=== PATIENT | female | born 2005 | race Two or more races ===

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

== ENCOUNTER → 2023-05-14 | Outpatient (CLI) | payer OTHER ==
[2023-05-14 13:28] LABS: ALT 23 U/L (8-44); AST 16 U/L (13-35); Albumin 4.5 d/dL (3.8-4.9); Albumin/Globulin Ratio 1.96 Ratio (1.60-3.17); Alkaline Phosphatase 81 U/L (41-126); Blood Urea Nitrogen 9.4 mg/dL (9.0-27.0); C-Peptide 3.23 ng/mL (0.81-3.85); Calcium 9.7 mg/dL (8.7-10.3); Carbon Dioxide 22.8 mmol/L (21.6-31.8); Chloride 104 mmol/L (96-109); Chol/HDL Ratio 5.68 Ratio; Globulin 2.3 d/dL (1.6-3.3); Glucose 235 mg/dL (70-110); Sodium 139 mmol/L (135-145); Total Bilirubin 0.4 mg/dL (0.3-1.2); Total Protein 6.8 d/dL (6.2-8.2)
== END | disposition home or self-care (01) ==
LOC: LABWHC1 08:54
PROVIDERS: ATTEND Internal Medicine Endocrinology, Diabetes & Metabolism
DX: E11.65 Type 2 diabetes mellitus with hyperglycemia (principal)
CPT/HCPCS: 36415; 80053; 80061; 82043; 82570; 83519; 84681; 86341

== ENCOUNTER 2024-12-25 16:58 | Emergency (ER) | payer OTHER ==
[2024-12-25 17:10] VITALS: TEMP 98.2
--- NOTE | 2024-12-25 17:56 | ED ---
Eye Problem HPI - General Chief complaint: ENT Stated complaint: Vision issue,headache Time Seen by Provider: 12/25/24 17:22 Source: patient, RN notes reviewed, old records reviewed Mode of arrival: ambulatory Limitations: no limitations - History of Present Illness Initial comments: This is a 19-year-old female to the ER for evaluation patient presents today for evaluation of limited vision in the right eye. Patient having difficulty staying lower aspect of her right eye. Only in the right eye. History of right eye visual floaters. Maybe some eye pain may be a mild headache but nothing significant here in the ER. 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 MD chief complaint: eye pain, vision change -: hour(s) Onset Description: gradual Location: right eye Place: home If Injury: none Severity: moderate Severity scale (1-10): 5 Consistency: constant Associated Symptoms: none Treatments Prior to Arrival: none - Related Data Home Medications Medication Instructions Recorded Confirmed Dextroamphetamine/Amphetamine 30 mg PO DAILY 10/04/18 03/05/21 [Adderall Xr] buPROPion HCL [Wellbutrin XL] 300 mg PO DAILY 10/04/18 03/05/21 hydrOXYzine pamoate [Vistaril] 25 mg PO BID PRN 01/27/20 03/05/21 INSULIN LISPRO (For Pump) [humaLOG 0.01 units SQ-PUMP CONTINUOUS 03/05/21 03/05/21 (For Pump)] Insulin Glargine (Lantus) [Lantus] 60 unit SQ DIRECTED 03/05/21 03/05/21 [place] Carbonate [[place] 900 mg PO HS 03/05/21 03/05/21 Carbonate ER] Prazosin HCl 4 mg PO HS 03/05/21 03/05/21 QUEtiapine [SEROquel] 150 mg PO HS 03/05/21 03/05/21 norgestimate-ethinyl estradioL 1 tab PO DAILY 03/05/21 03/05/21 [Sprintec 28 Day Tablet] Allergies Allergy/AdvReac Type Severity Reaction Status Date / Time No Known Allergies Allergy Verified 12/25/24 17:07 Review of Systems ROS Statement: Those systems with pertinent positive or pertinent negative responses have been documented in the HPI. ROS Other: All systems not noted in ROS Statement are negative. Past Medical History Past Medical History: Asthma, Diabetes Mellitus History of Any Multi-Drug Resistant Organisms: None Reported Past Surgical History: Tonsillectomy Past Psychological History: Depression Smoking Status: Vaper Past Alcohol Use History: None Reported Past Drug Use History: None Reported General Exam Limitations: no limitations General appearance: alert, in no apparent distress Head exam: Present: atraumatic, normocephalic, normal inspection Eye exam: Present: normal appearance, PERRL, EOMI. Absent: scleral icterus, conjunctival injection, periorbital swelling ENT exam: Present: normal exam, mucous membranes moist Neck exam: Present: normal inspection. Absent: tenderness, meningismus, lymphadenopathy Respiratory exam: Present: normal lung sounds bilaterally. Absent: respiratory distress, wheezes, rales, rhonchi, stridor Cardiovascular Exam: Present: regular rate, normal rhythm, normal heart sounds. Absent: systolic murmur, diastolic murmur, rubs, gallop, clicks GI/Abdominal exam: Present: soft, normal bowel sounds. Absent: distended, tenderness, guarding, rebound, rigid Extremities exam: Present: normal inspection, full ROM, normal capillary refill. Absent: tenderness, pedal edema, joint swelling, calf tenderness Back exam: Present: normal inspection Neurological exam: Present: alert, oriented X3, CN II-XII intact Psychiatric exam: Present: normal affect, normal mood Skin exam: Present: warm, dry, intact, normal color. Absent: rash Course Vital Signs 12/25/24 17:09 Temperature 98.2 F Pulse Rate 94 Respiratory 20 Rate Blood Pressure 126/89 O2 Sat by Pulse 98 Oximetry - Reevaluation(s) Reevaluation #1: 12/25/24 20:04 Medical records reviewed Reevaluation #2: 12/25/24 20:04 No improvement in vision here in the ER Reevaluation #4: Was pt. sent in by a medical professional or institution (, PA, LOCOMOTIVE LUBRICATING SYSTEMS CLERK, urgent care, hospital, or [facility]...) When possible be specific @ -no Did you speak to anyone other than the patient for history (EMS, parent, family, police, friend...)? What history was obtained from this source @ -no Did you review nursing and triage notes (agree or disagree)? Why? @ -agree Are old charts reviewed (outside hosp., previous admission, EMS record, old EKG, old radiological studies, urgent care reports/EKG's, [facility] records)? Report findings @ -yes Differential Diagnosis (chest pain, altered mental status, abdominal pain women, abdominal pain men, vaginal bleeding, weakness, fever, dyspnea, syncope, headache, dizziness, GI bleed, back pain, seizure, CVA, palpatations, mental health, musculoskeletal)? @ -prior EKG interpreted by me (3pts min.). @ -yes X-rays interpreted by me (1pt min.). @ -yes negative for acute disease CT interpreted by me (1pt min.). @ -no U/S interpreted by me (1pt. min.). @ -no What testing was considered but not performed or refused? (CT, X-rays, U/S, labs)? Why? @ -none What meds were considered but not given or refused? Why? @ -none Did you discuss the management of the patient with other professionals (professionals i.e. , PA, LOCOMOTIVE LUBRICATING SYSTEMS CLERK, lab, RT, psych nurse, social and human services assistant, mission analyst, teacher, production officer, case management rn)? Give summary @ -no Was smoking cessation discussed for >3mins.? @ -no Was critical care preformed (if so, how long)? @ -no Were there social determinants of health that impacted care today? How? (Homelessness, low income, unemployed, alcoholism, drug addiction, transportation, low edu. Level, literacy, decrease access to med. care, alf, rehab)? @ -none Was there de-escalation of care discussed even if they declined (Discuss DNR or withdrawal of care, Hospice)? DNR status @ -no What co-morbidities impacted this encounter? (DM, HTN, Smoking, COPD, CAD, Cancer, CVA, ARF, Chemo, Hep., AIDS, mental health diagnosis, sleep apnea, morbid obesity)? @ -none Was patient admitted / discharged? Hospital course, mention meds given and route, prescriptions, significant lab abnormalities, going to OR and other pertinent info. @ - Undiagnosed new problem with uncertain prognosis? @ -no Drug Therapy requiring intensive monitoring for toxicity (Heparin, Nitro, Insulin, Cardizem)? @ -no Were any procedures done? @ -no Diagnosis/symptom? @ - Acute, or Chronic, or Acute on Chronic? @ -Acute Uncomplicated (without systemic symptoms) or Complicated (systemic symptoms)? @ -Complicated Side effects of treatment? @ -no Exacerbation, Progression, or Severe Exacerbation? @ -exacerbation Poses a threat to life or bodily function? How? (Chest pain, [place], [place], pneumonia, PE, COPD, DKA, ARF, appy, cholecystitis, CVA, Diverticulitis, Homicidal, Suicidal, threat to staff... and all critical care pts) @ -yes - Consultations Consultation #1: With ophthalmology who is able to come to the hospital to see this patient Disposition Clinical Impression: Vitreous hemorrhage Disposition: HOME SELF-CARE Condition: Good Instructions (If sedation given, give patient instructions): Visual Floaters (ED) Is patient prescribed a controlled substance at d/c from ED?: No Referrals: None,Stated [Primary Care Provider] - 1-2 days Time of Disposition: 20:20
[2024-12-25 21:14] VITALS: BP 135/91; PULSE 96; RESP 18
--- NOTE | 2024-12-28 13:27 | P.GSCN ---
History of Present Illness Consult date: 12/28/24 Reason for Consult: decreased vision OD Requesting physician: Tim Vicente History of present illness: started decreased vision tuesday that has progressed Review of Systems see chart Past Medical History Past Medical History: Asthma, Diabetes Mellitus History of Any Multi-Drug Resistant Organisms: None Reported Past Surgical History: Tonsillectomy Past Psychological History: Depression Smoking Status: Vaper Past Alcohol Use History: None Reported Past Drug Use History: None Reported Medications and Allergies Home Medications Medication Instructions Recorded Confirmed Type Dextroamphetamine/Amphetamine 30 mg PO DAILY 10/04/18 03/05/21 History [Adderall Xr] buPROPion HCL [Wellbutrin XL] 300 mg PO DAILY 10/04/18 03/05/21 History hydrOXYzine pamoate [Vistaril] 25 mg PO BID PRN 01/27/20 03/05/21 History INSULIN LISPRO (For Pump) [humaLOG 0.01 units SQ-PUMP CONTINUOUS 03/05/21 03/05/21 History (For Pump)] Insulin Glargine (Lantus) [Lantus] 60 unit SQ DIRECTED 03/05/21 03/05/21 History [place] Carbonate [[place] 900 mg PO HS 03/05/21 03/05/21 History Carbonate ER] Prazosin HCl 4 mg PO HS 03/05/21 03/05/21 History QUEtiapine [SEROquel] 150 mg PO HS 03/05/21 03/05/21 History norgestimate-ethinyl estradioL 1 tab PO DAILY 03/05/21 03/05/21 History [Sprintec 28 Day Tablet] Allergies Allergy/AdvReac Type Severity Reaction Status Date / Time No Known Allergies Allergy Verified 12/25/24 17:07 Surgical - Exam Osteopathic Statement: *. No significant issues noted on an osteopathic structural exam other than those noted in the History and Physical/Consult. Vital Signs Temp Pulse Resp BP Pulse Ox 98.2 F 94 20 126/89 98 12/25/24 17:09 12/25/24 17:09 12/25/24 17:09 12/25/24 17:09 12/25/24 17:09 - Eyes visual acuities OD 20/400 VA OS 20/20 IOP soft to palpation EOM: Full ou CVF: diminished OD full OS SLE: Lids: clear OU Conj: clear OU K; clear OU AC: deep and quiet OU Iris: flat no rubeosis OU Lens: clear ou Fundus: dilated with tropicamide and phenylephrine OD CD: 0.3 OD Vessels: Microaneurysm's OD Macula: dot hemorrhage OD Periphery: Dot hemorrhage OD Media: Vitreous hemorrhage OD Assessment and Plan Plan: 1. Severe diabetic retinopathy OD 2. Vitreous hemorrhage OD 3. Stay upright to help. the hemorrhage settle. better blood sugar control stressed. patient to call office for follow up visit on tuesday for fundus photo and further evaluation.
== END 2024-12-25 21:14 | disposition home or self-care (01) ==
LOC: EC 16:58
DX: H43.11 Vitreous hemorrhage, right eye (principal); F17.290 Nicotine dependence, other tobacco product, uncomplicated
CPT/HCPCS: 99284

== ENCOUNTER 2025-01-11 11:35 | Emergency (ER) | payer OTHER ==
[2025-01-11 11:51] VITALS: TEMP 97.5
--- NOTE | 2025-01-11 13:03 | ED ---
General Adult HPI - General Chief complaint: Recheck/Abnormal Lab/Rx Stated complaint: dizziness, NV Time Seen by Provider: 01/11/25 12:09 Source: patient Mode of arrival: ambulatory Limitations: no limitations - History of Present Illness Initial comments: Dictation was produced using [employer] dictation software. please excuse any grammatical, word or spelling errors. Chief Complaint: 19-year-old female presents to the emergency department for post LP headache History of Present Illness: 19-year-old female she was recently seen in the emergency department on the first she was seen by ophthalmology and told that she had a vitreous hemorrhage. Patient ended up at [facility] was admitted for a week where she had a lumbar puncture, and 2 MRIs. Patient states she was discharged after her LP results were normal and MRIs were normal. Belen ent states she has had approximately 2 to 3 weeks of right-sided vision loss. States that her symptoms are similar since they began. States that 2 days after the lumbar puncture she began having pressure in her head mostly in the occiput. Patient states that the headache has been relatively stable since its onset. The ROS documented in this emergency department record has been reviewed and co nfirmed by me. Those systems with pertinent positive or negative responses have been documented in the HPI. All other systems are other negative and/or noncontributory. - Related Data Home Medications Medication Instructions Recorded Confirmed Dextroamphetamine/Amphetamine 30 mg PO DAILY 10/04/18 03/05/21 [Adderall Xr] buPROPion HCL [Wellbutrin XL] 300 mg PO DAILY 10/04/18 03/05/21 hydrOXYzine pamoate [Vistaril] 25 mg PO BID PRN 01/27/20 03/05/21 INSULIN LISPRO (For Pump) [humaLOG 0.01 units SQ-PUMP CONTINUOUS 03/05/21 03/05/21 (For Pump)] Insulin Glargine (Lantus) [Lantus] 60 unit SQ DIRECTED 03/05/21 03/05/21 [place] Carbonate [[place] 900 mg PO HS 03/05/21 03/05/21 Carbonate ER] Prazosin HCl 4 mg PO HS 03/05/21 03/05/21 QUEtiapine [SEROquel] 150 mg PO HS 03/05/21 03/05/21 norgestimate-ethinyl estradioL 1 tab PO DAILY 03/05/21 03/05/21 [Sprintec 28 Day Tablet] Previous Rx's Medication Instructions Recorded Cephalexin [Keflex] 500 mg PO Q12HR 7 Days #14 cap 01/11/25 Allergies Allergy/AdvReac Type Severity Reaction Status Date / Time No Known Allergies Allergy Verified 01/11/25 11:51 Review of Systems ROS Statement: Those systems with pertinent positive or pertinent negative responses have been documented in the HPI. ROS Other: All systems not noted in ROS Statement are negative. Past Medical History Past Medical History: Asthma, Diabetes Mellitus History of Any Multi-Drug Resistant Organisms: None Reported Past Surgical History: Tonsillectomy Past Psychological History: Depression Smoking Status: Vaper Past Alcohol Use History: None Reported Past Drug Use History: None Reported General Exam - General Exam Comments Initial Comments: PHYSICAL EXAM: General Impression: Alert and oriented x3, not in acute distress HEENT: Normocephalic atraumatic, extra-ocular movements intact, pupils equal and reactive to light bilaterally, mucous membranes moist. Cardiovascular: Heart regular rate and rhythm Chest: Able to complete full sentences, no retractions, no tachypnea Abdomen: abdomen soft, non-tender, non-distended, no organomegaly Musculoskeletal: Pulses present and equal in all extremities, no peripheral edema Motor: no focal deficits noted Neurological: CN II-XII grossly intact, no focal motor or sensory deficits noted Skin: Intact with no visualized rashes Psych: Normal affect and mood Limitations: no limitations Course Vital Signs 01/11/25 11:48 Temperature 97.5 F L Pulse Rate 98 Respiratory 20 Rate Blood Pressure 123/87 O2 Sat by Pulse 99 Oximetry Medical Decision Making - Medical Decision Making Was pt. sent in by a medical professional or institution (, PA, [employer], urgent care, hospital, or care home...) When possible be specific @ -No Did you speak to anyone other than the patient for history (EMS, parent, family, police, friend...)? What history was obtained from this source @ -No Did you review nursing and triage notes (agree or disagree)? Why? @ -I reviewed and agree with nursing and triage notes Were old charts reviewed (outside hosp., previous admission, EMS record, old EKG, old radiological studies, urgent care reports/EKG's, care home records)? Report findings @ -No old charts were reviewed Differential Diagnosis (chest pain, altered mental status, abdominal pain women, abdominal pain men, vaginal bleeding, musculoskeletal, weakness, fever, dyspnea, syncope, headache, dizziness, GI bleed, back pain, seizure, CVA, palpatations, mental health)? @ -Differential Vaginal Bleeding: Spontaneous , threatened , molar , ectopic , bloody show, incompetent cervix, abruptioplacenta, placenta previa, uterine rupture, dysfunctional uterine bleeding, hemorrhage, uterine fibroids, this is not meant to be an all-inclusive list. EKG interpreted by me (3pts min.). @ -None done X-rays interpreted by me (1pt min.). @ -None done CT interpreted by me (1pt min.). @ -None done U/S interpreted by me (1pt. min.). @ -@Shows no intrauterine What testing was considered but not performed or refused? (CT, X-rays, U/S, labs)? Why? @ -None What meds were considered but not given or refused? Why? @ -None Was smoking cessation discussed for >3mins.? @ -No Were there social determinants of health that impacted care today? How? (Homelessness, low income, unemployed, alcoholism, drug addiction, transportation, low edu. Level, literacy, decrease access to med. care, half-way, rehab)? @ -No Was there de-escalation of care discussed even if they declined (Discuss DNR or withdrawal of care, Hospice)? DNR status @ -No What co-morbidities impacted this encounter? (DM, HTN, Smoking, COPD, CAD, Cancer, CVA, ARF, Chemo, Hep., AIDS, mental health diagnosis, sleep apnea, morbid obesity)? @ -None Was patient admitted / discharged? Hospital course, mention meds given and route, prescriptions, significant lab abnormalities, going to OR and other pertinent info. @ -19-year-old female presents to the ER for pelvic pain and vaginal bleeding in . Patient is a positive blood type. Patient well-appearing vital signs are stable. Patient is concerned of miscarriage refusing pelvic exam. Labs obtained beta quant is 46.4. Urinalysis shows blood and white blood cells. Ultrasound shows no intrauterine likely miscarriage. Patient given ectopic precautions. Patient given referral to on-call OB. Did you discuss the management of the patient with other professionals (professionals i.e. , PA, [employer], lab, RT, psych nurse, school social worker, supervising deputy, teacher, hospital security officer, director of casework)? Give summary @ -No Was critical care preformed (if so, how long)? @ -No Undiagnosed new problem with uncertain prognosis? @ -No Drug Therapy requiring intensive monitoring for toxicity (Heparin, Nitro, Insulin, Cardizem)? @ -No Were any procedures done? @ -No Diagnosis/symptom? Acute, or Chronic, or Acute on Chronic? Uncomplicated (without systemic symptoms) or Complicated (systemic symptoms)? @ -Vaginal bleeding in Side effects of treatment? @ -No Exacerbation, Progression, or Severe Exacerbation? @ -No Poses a threat to life or bodily function? How? (Chest pain, [place], [place], pneumonia, PE, COPD, DKA, ARF, appy, cholecystitis, CVA, Diverticulitis, Homicidal, Suicidal, threat to staff... and all critical care pts) @ -yes - Lab Data Result diagrams: 01/11/25 13:24 01/11/25 13:24 Lab Results 01/11/25 01/11/25 Range/Units 13:24 13:24 WBC 14.05 H (4.50-10.00) 10*3/uL RBC 5.53 H (4.10-5.20) 10*6/uL Hgb 13.7 (12.0-15.0) g/dL Hct 41.7 (37.2-46.3) % MCV 75.4 L (80.0-97.0) fL MCH 24.8 L (27.0-32.0) pg MCHC 32.9 (32.0-37.0) g/dL Plt Count 315 (140-440) 10*3/uL MPV 10.4 (9.5-12.2) fL Immature Gran % (Auto) 0.4 % Neutrophils % 77.4 % Lymphocytes % 17.7 % Monocytes % 3.7 % Eosinophils % 0.7 % Basophils % 0.1 % Immature Gran # 0.06 H (0.00-0.04) 10*3/uL Neutrophils # 10.86 H (1.80-7.70) 10*3/uL Lymphocytes # 2.49 (0.90-5.00) 10*3/uL Monocytes # 0.52 (0.20-1.00) 10*3/uL Eosinophils # 0.10 (0.04-0.35) 10*3/uL Basophils # 0.02 (0.00-0.10) 10*3/uL Sodium 131 L (137-145) mmol/L Potassium 4.4 (3.5-5.1) mmol/L Chloride 100 (98-107) mmol/L Carbon Dioxide 22 (22-30) mmol/L Anion Gap 9 mmol/L BUN 12 (7-17) mg/dL Creatinine 0.32 L (0.52-1.04) mg/dL Est GFR (CKD-EPI)AfAm >90 (>60 ml/min/1.73 sqM) Est GFR (CKD-EPI)NonAf >90 (>60 ml/min/1.73 sqM) Glucose 289 H (74-99) mg/dL Calcium 9.4 (8.4-10.2) mg/dL Disposition Clinical Impression: Vaginal bleeding during Disposition: HOME SELF-CARE Condition: Fair Instructions (If sedation given, give patient instructions): Threatened Miscarriage (ED) Additional Instructions: f/u with Dr. Farah after blood test. return to ER for worsening symptoms Prescriptions: Cephalexin [Keflex] 500 mg PO Q12HR 7 Days #14 cap Is patient prescribed a controlled substance at d/c from ED?: No Referrals: Joanna Bhakta MD [STAFF PHYSICIAN] - 1-2 days Time of Disposition: 14:12
--- NOTE | 2025-01-11 13:18 | CT ---
EXAMINATION TYPE: CT brain wo con DATE OF EXAM: 01/11/2025 COMPARISON: 04/29/2014 CLINICAL INDICATION: Female, 19 years old with history of spinal tap headache; [facility], 1011.4 CT DLP: Headache and dizziness, lumbar puncture done x 4 days ago. mGycm Automated exposure control for dose reduction was used. Findings: The ventricles, basal cisterns and sulci over the convexities are within normal limits and there is n o mass effect or shift of midline structures. No abnormal density is seen throughout the brain parenchyma and there is no acute intra or extra-axia l hemorrhage. The posterior fossa including the brainstem, fourth ventricle and cerebellar pontine angles appear no rmal. Intraorbital contents appear normal and symmetric. Visualized paranasal sinuses and mastoid air cells are well aerated. The calvarium is intact. IMPRESSION: No significant abnormality seen. There is no acute bleed or mass effect. [facility], , 01/11/2025 1:16 PM
[2025-01-11 13:29] LABS: Basophils # (A) 0.02 10*3/uL (0.00-0.10); Basophils % (A) 0.1 %; Eosinophils % (A) 0.7 %; HCT 41.7 % (37.2-46.3); HGB 13.7 g/dL (12.0-15.0); Lymphocytes # (A) 2.49 10*3/uL (0.90-5.00); Lymphocytes % (A) 17.7 %; MCH 24.8 pg (27.0-32.0); MCHC 32.9 g/dL (32.0-37.0); MCV 75.4 fL (80.0-97.0); Mean Platelet Volume 10.4 fL (9.5-12.2); Monocytes # (A) 0.52 10*3/uL (0.20-1.00); Monocytes % (A) 3.7 %; Neutrophils # (A) 10.86 10*3/uL (1.80-7.70); Neutrophils % (A) 77.4 %; Platelet Count 315 10*3/uL (140-440); RBC 5.53 10*6/uL (4.10-5.20); RDW 14.1 % (11.5-14.5); WBC 14.05 10*3/uL (4.50-10.00)
[2025-01-11] MEDS: SODIUM CHLORIDE 0.9% 1,000 ML IV STA (13:35)
[2025-01-11 13:39] LABS: African American GFR (CKD) >90 (>60 ml/min/1.73 sqM); Anion Gap 9 mmol/L; Blood Urea Nitrogen 12 mg/dL (7-17); Calcium 9.4 mg/dL (8.4-10.2); Carbon Dioxide 22 mmol/L (22-30); Chloride 100 mmol/L (98-107); Glucose 289 mg/dL (74-99); Non-African American GFR(CKD) >90 (>60 ml/min/1.73 sqM); Potassium 4.4 mmol/L (3.5-5.1); Sodium 131 mmol/L (137-145)
[2025-01-11] MEDS: CAFFEINE-SODIUM BENZOATE 500 MG in SODIUM CHLORIDE 0.9% 1,000 ML IVPB ONE (13:45)
--- NOTE | 2025-01-11 14:24 | ED ---
General Adult HPI - General Chief complaint: Recheck/Abnormal Lab/Rx Stated complaint: dizziness, NV Time Seen by Provider: 01/11/25 12:09 Source: patient Mode of arrival: ambulatory Limitations: no limitations - History of Present Illness Initial comments: Dictation was produced using [employer] dictation software. please excuse any grammatical, word or spelling errors. Chief Complaint: 19-year-old female presents to the emergency department for post LP headache History of Present Illness: 19-year-old female she was recently seen in the emergency department on the first she was seen by ophthalmology and told that she had a vitreous hemorrhage. Patient ended up at [facility] was admitted for a week where she had a lumbar puncture, and 2 MRIs. Patient states she was discharged after her LP results were normal and MRIs were normal. Belen ent states she has had approximately 2 to 3 weeks of right-sided vision loss. States that her symptoms are similar since they began. States that 2 days after the lumbar puncture she began having pressure in her head mostly in the occiput. Patient states that the headache has been relatively stable since its onset. The ROS documented in this emergency department record has been reviewed and co nfirmed by me. Those systems with pertinent positive or negative responses have been documented in the HPI. All other systems are other negative and/or noncontributory. - Related Data Home Medications Medication Instructions Recorded Confirmed Dextroamphetamine/Amphetamine 30 mg PO DAILY 10/04/18 03/05/21 [Adderall Xr] buPROPion HCL [Wellbutrin XL] 300 mg PO DAILY 10/04/18 03/05/21 hydrOXYzine pamoate [Vistaril] 25 mg PO BID PRN 01/27/20 03/05/21 INSULIN LISPRO (For Pump) [humaLOG 0.01 units SQ-PUMP CONTINUOUS 03/05/21 03/05/21 (For Pump)] Insulin Glargine (Lantus) [Lantus] 60 unit SQ DIRECTED 03/05/21 03/05/21 [place] Carbonate [[place] 900 mg PO HS 03/05/21 03/05/21 Carbonate ER] Prazosin HCl 4 mg PO HS 03/05/21 03/05/21 QUEtiapine [SEROquel] 150 mg PO HS 03/05/21 03/05/21 norgestimate-ethinyl estradioL 1 tab PO DAILY 03/05/21 03/05/21 [Sprintec 28 Day Tablet] Allergies Allergy/AdvReac Type Severity Reaction Status Date / Time No Known Allergies Allergy Verified 01/11/25 11:51 Review of Systems ROS Statement: Those systems with pertinent positive or pertinent negative responses have been documented in the HPI. ROS Other: All systems not noted in ROS Statement are negative. Past Medical History Past Medical History: Asthma, Diabetes Mellitus History of Any Multi-Drug Resistant Organisms: None Reported Past Surgical History: Tonsillectomy Past Psychological History: Depression Smoking Status: Vaper Past Alcohol Use History: None Reported Past Drug Use History: None Reported General Exam - General Exam Comments Initial Comments: PHYSICAL EXAM: General Impression: Alert and oriented x3, not in acute distress HEENT: Normocephalic atraumatic, extra-ocular movements intact, pupils equal and reactive to light bilaterally, mucous membranes moist. Cardiovascular: Heart regular rate and rhythm Chest: Able to complete full sentences, no retractions, no tachypnea Abdomen: abdomen soft, non-tender, non-distended, no organomegaly Musculoskeletal: Pulses present and equal in all extremities, no peripheral edema Motor: no focal deficits noted Neurological: CN II-XII grossly intact, no focal motor or sensory deficits noted Skin: Intact with no visualized rashes Psych: Normal affect and mood Limitations: no limitations Course Vital Signs 01/11/25 11:48 Temperature 97.5 F L Pulse Rate 98 Respiratory 20 Rate Blood Pressure 123/87 O2 Sat by Pulse 99 Oximetry - Reevaluation(s) Reevaluation #1: 01/11/25 14:23 Case discussed with anesthesia for placement of blood patch. Case discussed wit h on-call anesthesia who states that patient not a candidate due to some leukocytosis. IV fluids and caffeine. Medical Decision Making - Medical Decision Making Was pt. sent in by a medical professional or institution (, PA, CHARGE AUTHORIZER, urgent care, hospital, or chcf...) When possible be specific @ -No Did you speak to anyone other than the patient for history (EMS, parent, family, police, friend...)? What history was obtained from this source @ -No Did you review nursing and triage notes (agree or disagree)? Why? @ -I reviewed and agree with nursing and triage notes Were old charts reviewed (outside hosp., previous admission, EMS record, old EKG, old radiological studies, urgent care reports/EKG's, chcf records)? Report findings @ -No old charts were reviewed Differential Diagnosis (chest pain, altered mental status, abdominal pain women, abdominal pain men, vaginal bleeding, musculoskeletal, weakness, fever, dyspnea, syncope, headache, dizziness, GI bleed, back pain, seizure, CVA, palpatations, mental health)? @ -Differential Headache: Migraine, tension, cluster, carbon monoxide, central venous thrombosis, pension karma temporal arteritis, acute closure glaucoma, intercranial hemorrhage, mastoiditis, sinusitis, head injury, this is not meant to be an all-inclusive list. EKG interpreted by me (3pts min.). @ -None done X-rays interpreted by me (1pt min.). @ -None done CT interpreted by me (1pt min.). @ -CT brain is nonacute U/S interpreted by me (1pt. min.). @ -None done What testing was considered but not performed or refused? (CT, X-rays, U/S, labs)? Why? @ -None What meds were considered but not given or refused? Why? @ -None Was smoking cessation discussed for >3mins.? @ -No Were there social determinants of health that impacted care today? How? (Homelessness, low income, unemployed, alcoholism, drug addiction, transportation, low edu. Level, literacy, decrease access to med. care, longterm, rehab)? @ -No Was there de-escalation of care discussed even if they declined (Discuss DNR or withdrawal of care, Hospice)? DNR status @ -No What co-morbidities impacted this encounter? (DM, HTN, Smoking, COPD, CAD, Cancer, CVA, ARF, Chemo, Hep., AIDS, mental health diagnosis, sleep apnea, m orbid obesity)? @ -None Was patient admitted / discharged? Hospital course, mention meds given and route, prescriptions, significant lab abnormalities, going to OR and other pertinent info. @ -19-year-old female with post LP headache. Labs unremarkable. Imaging studies negative. Patient given IV fluids and IV caffeine. Case discussed with anesthesia states that she is not a candidate due to leukocytosis. Patient given fluids and caffeine. Symptoms improved. Patient will be discharged. Did you discuss the management of the patient with other professionals (professionals i.e. , PA, CHARGE AUTHORIZER, lab, RT, psych nurse, protective services social worker, biodiesel engine specialist, teacher, chief knowledge officer, director case)? Give summary @ -As above Was critical care preformed (if so, how long)? @ -No Undiagnosed new problem with uncertain prognosis? @ -No Drug Therapy requiring intensive monitoring for toxicity (Heparin, Nitro, Insulin, Cardizem)? @ -No Were any procedures done? @ -No Diagnosis/symptom? Acute, or Chronic, or Acute on Chronic? Uncomplicated (without systemic symptoms) or Complicated (systemic symptoms)? @ -Post LP headache Side effects of treatment? @ -No Exacerbation, Progression, or Severe Exacerbation? @ -No Poses a threat to life or bodily function? How? (Chest pain, [place], [place], pneumonia, PE, COPD, DKA, ARF, appy, cholecystitis, CVA, Diverticulitis, Homicidal, Suicidal, threat to staff... and all critical care pts) @ -No - Lab Data Result diagrams: 01/11/25 13:24 01/11/25 13:24 Lab Results 01/11/25 01/11/25 01/11/25 Range/Units 13:24 13:24 14:35 WBC 14.05 H (4.50-10.00) 10*3/uL RBC 5.53 H (4.10-5.20) 10*6/uL Hgb 13.7 (12.0-15.0) g/dL Hct 41.7 (37.2-46.3) % MCV 75.4 L (80.0-97.0) fL MCH 24.8 L (27.0-32.0) pg MCHC 32.9 (32.0-37.0) g/dL Plt Count 315 (140-440) 10*3/uL MPV 10.4 (9.5-12.2) fL Immature Gran % (Auto) 0.4 % Neutrophils % 77.4 % Lymphocytes % 17.7 % Monocytes % 3.7 % Eosinophils % 0.7 % Basophils % 0.1 % Immature Gran # 0.06 H (0.00-0.04) 10*3/uL Neutrophils # 10.86 H (1.80-7.70) 10*3/uL Lymphocytes # 2.49 (0.90-5.00) 10*3/uL Monocytes # 0.52 (0.20-1.00) 10*3/uL Eosinophils # 0.10 (0.04-0.35) 10*3/uL Basophils # 0.02 (0.00-0.10) 10*3/uL PT 10.0 (10.0-12.5) sec INR 0.9 (<1.2) APTT 21.4 L (22.0-30.0) sec Sodium 131 L (137-145) mmol/L Potassium 4.4 (3.5-5.1) mmol/L Chloride 100 (98-107) mmol/L Carbon Dioxide 22 (22-30) mmol/L Anion Gap 9 mmol/L BUN 12 (7-17) mg/dL Creatinine 0.32 L (0.52-1.04) mg/dL Est GFR (CKD-EPI)AfAm >90 (>60 ml/min/1.73 sqM) Est GFR (CKD-EPI)NonAf >90 (>60 ml/min/1.73 sqM) Glucose 289 H (74-99) mg/dL Calcium 9.4 (8.4-10.2) mg/dL Disposition Clinical Impression: Spinal puncture headache Disposition: HOME SELF-CARE Condition: Fair Instructions (If sedation given, give patient instructions): Lumbar Puncture (ED) Additional Instructions: increase caffeine intake Is patient prescribed a controlled substance at d/c from ED?: No Referrals: Nonstaff,Physician [REFERRING] - 1-2 days Time of Disposition: 15:37
--- NOTE | 2025-01-11 14:28 | P.PN ---
Progress Note - Text Progress Note Date: 01/11/25 Anesthesia S: 19-year-old female with past medical history of asthma and diabetes presenting with a headache. Recent history of vision loss in LP done at [place] where it showed increased protein in her CSF per patient. CT no mass effect. Platelets 315. No blood thinners per patient. Last LP was done 4 days ago. 3 days ago the headache began. 4 out of 10 at supine, to 9 out of 10 when erect. It is a squeezing pressure type pain. Nonradiating. Associated auditory symptoms. History of chronic headaches. Still complaining of vision loss in the right eye Vital signs stable General Alert no acute distress while supine Cardiovascular regular rhythm Respiratory good chest excursion Neuro A and O x 4 A: 1 probable postdural puncture headache 2. Diabetes 3. Asthma Plan: #1 Long discussion with the patient about symptoms and potential for postdural puncture headache. Explained what is causing the symptoms and potential treatments. Conservative versus epidural blood patch. Patient currently has an increased white count and in the interest of safety would recommend conservative treatment at this time. Explained this to patient patient agrees. Recommend pushing fluids and caffeine as postdural puncture headaches are often self-limiting to around a 7-day timeframe. 2. Discussed with nurse and ER doc 3. Your medical management
[2025-01-11 14:59] LABS: INR 0.9 (<1.2); Partial Thromboplastin Time 21.4 sec (22.0-30.0)
[2025-01-11 15:48] VITALS: BP 132/80; PULSE 92; RESP 16
== END 2025-01-11 15:48 | disposition home or self-care (01) ==
LOC: EC 11:35
DX: O20.9 Hemorrhage in early pregnancy, unspecified (principal); O99.331 Smoking (tobacco) complicating pregnancy, first trimester; F17.290 Nicotine dependence, other tobacco product, uncomplicated; Z3A.00 Weeks of gestation of pregnancy not specified
CPT/HCPCS: 36415; 70450; 80048; 85025; 85610; 85730; 96365; 96366; 99284

== ENCOUNTER 2025-02-13 21:06 | Emergency (ER) | payer OTHER ==
[2025-02-13 21:23] VITALS: TEMP 98.3
--- NOTE | 2025-02-13 21:39 | ED ---
General Adult HPI - General Chief complaint: Syncope Stated complaint: Near syncope Time Seen by Provider: 02/13/25 21:08 Source: patient, EMS Mode of arrival: EMS - History of Present Illness Initial comments: Dictation was produced using [employer] dictation software. please excuse any grammatical, word or spelling errors. Chief Complaint: 39-year-old female with lightheadedness History of Present Illness: Patient 19-year-old female presents to the emergency department with episode of what she describes as total body pressure. Followed by lower extremity weakness. Patient has history of diabetes. Patient states she feel much better since being in the emergency room. Denies . Denies any pain complaints. The ROS documented in this emergency department record has been reviewed and confirmed by me. Those systems with pertinent positive or negative responses have been documented in the HPI. All other systems are other negative and/or noncontributory. - Related Data Home Medications Medication Instructions Recorded Confirmed Dextroamphetamine/Amphetamine 30 mg PO DAILY 10/04/18 03/05/21 [Adderall Xr] buPROPion HCL [Wellbutrin XL] 300 mg PO DAILY 10/04/18 03/05/21 hydrOXYzine pamoate [Vistaril] 25 mg PO BID PRN 01/27/20 03/05/21 INSULIN LISPRO (For Pump) [humaLOG 0.01 units SQ-PUMP CONTINUOUS 03/05/21 03/05/21 (For Pump)] Insulin Glargine (Lantus) [Lantus] 60 unit SQ DIRECTED 03/05/21 03/05/21 Orange Blossom Carbonate [Orange Blossom 900 mg PO HS 03/05/21 03/05/21 Carbonate ER] Prazosin HCl 4 mg PO HS 03/05/21 03/05/21 QUEtiapine [SEROquel] 150 mg PO HS 03/05/21 03/05/21 norgestimate-ethinyl estradioL 1 tab PO DAILY 03/05/21 03/05/21 [Sprintec 28 Day Tablet] Allergies Allergy/AdvReac Type Severity Reaction Status Date / Time No Known Allergies Allergy Verified 02/13/25 21:22 Review of Systems ROS Statement: Those systems with pertinent positive or pertinent negative responses have been documented in the HPI. ROS Other: All systems not noted in ROS Statement are negative. Past Medical History Past Medical History: Asthma, Diabetes Mellitus History of Any Multi-Drug Resistant Organisms: None Reported Past Surgical History: Tonsillectomy Additional Past Surgical History / Comment(s): lumbar puncture 2024 Past Psychological History: Depression Smoking Status: Vaper Past Alcohol Use History: None Reported Past Drug Use History: None Reported General Exam - General Exam Comments Initial Comments: PHYSICAL EXAM: General Impression: Alert and oriented x3, not in acute distress HEENT: Normocephalic atraumatic, extra-ocular movements intact, pupils equal and reactive to light bilaterally, mucous membranes moist. Cardiovascular: Heart regular rate and rhythm Chest: Able to complete full sentences, no retractions, no tachypnea Abdomen: abdomen soft, non-tender, non-distended, no organomegaly Musculoskeletal: Pulses present and equal in all extremities, no peripheral edema Motor: no focal deficits noted Neurological: CN II-XII grossly intact, no focal motor or sensory deficits noted Skin: Intact with no visualized rashes Psych: Normal affect and mood Course Vital Signs 02/13/25 02/13/25 21:12 23:45 Temperature 98.3 F Pulse Rate 109 H 106 H Respiratory 20 18 Rate Blood Pressure 128/91 117/84 O2 Sat by Pulse 99 100 Oximetry EKG Findings - EKG Comments: EKG Findings:: My EKG interpretation: Ventricular rate 87, sinus rhythm, LA 140, QRS 90, QTc 389. No LA prolongation, no QTC prolongation, no ST or T-wave changes noted. Overall, this EKG is unremarkable Medical Decision Making - Medical Decision Making Was pt. sent in by a medical professional or institution (, PA, MANAGER GRAPHIC, urgent care, hospital, or fpc...) When possible be specific @ -No Did you speak to anyone other than the patient for history (EMS, parent, family, police, friend...)? What history was obtained from this source @ -No Did you review nursing and triage notes (agree or disagree)? Why? @ -I reviewed and agree with nursing and triage notes Were old charts reviewed (outside hosp., previous admission, EMS record, old EKG, old radiological studies, urgent care reports/EKG's, fpc records)? Report findings @ -No old charts were reviewed Differential Diagnosis (chest pain, altered mental status, abdominal pain women, abdominal pain men, vaginal bleeding, musculoskeletal, weakness, fever, dyspnea, syncope, headache, dizziness, GI bleed, back pain, seizure, CVA, palpatations, mental health)? @ -Differential Syncope: Valvular disease, hypertrophic cardiomyopathy, pulmonary embolism, tamponade, tachycardia, bradycardia, NH, hypovolemia, hemorrhage, dissection, anemia, intracranial hemorrhage, seizure, hypoglycemia, carbon monoxide poisoning, this is not meant to be an all-inclusive list. EKG interpreted by me (3pts min.). @ -See above X-rays interpreted by me (1pt min.). @ -None done CT interpreted by me (1pt min.). @ -None done U/S interpreted by me (1pt. min.). @ -None done What testing was considered but not performed or refused? (CT, X-rays, U/S, labs)? Why? @ -None What meds were considered but not given or refused? Why? @ -None Was smoking cessation discussed for >3mins.? @ -No Were there social determinants of health that impacted care today? How? (Homelessness, low income, unemployed, alcoholism, drug addiction, transportation, low edu. Level, literacy, decrease access to med. care, fdc, rehab)? @ -No Was there de-escalation of care discussed even if they declined (Discuss DNR or withdrawal of care, Hospice)? DNR status @ -No What co-morbidities impacted this encounter? (DM, HTN, Smoking, COPD, CAD, Cancer, CVA, ARF, Chemo, Hep., AIDS, mental health diagnosis, sleep apnea, morbid obesity)? @ -None Was patient admitted / discharged? Hospital course, mention meds given and route, prescriptions, significant lab abnormalities, going to OR and other pertinent info. @ -19-year-old diabetic female presents to the emergency department for dizziness and nausea. Vital signs upon arrival are within acceptable limits. Patient well-appearing at the bedside. Labs unremarkable. Except for hyperglycemia patient given insulin with improvement of glucose. Patient given Zofran for improvement of nausea reevaluated bedside 12:35 AM with resolution of symptoms. Patient discharged vies follow-up with primary care doctor. Did you discuss the management of the patient with other professionals (professionals i.e. , PA, MANAGER GRAPHIC, lab, RT, psych nurse, social sciences lecturer, horseback excavator, teacher, drug abuse resistance education officer, correctional casework specialist)? Give summary @ -No Was critical care preformed (if so, how long)? @ -No Undiagnosed new problem with uncertain prognosis? @ -No Drug Therapy requiring intensive monitoring for toxicity (Heparin, Nitro, Insulin, Cardizem)? @ -No Were any procedures done? @ -No Diagnosis/symptom? Acute, or Chronic, or Acute on Chronic? Uncomplicated (without systemic symptoms) or Complicated (systemic symptoms)? @ -Dizziness, no high risk features Side effects of treatment? @ -No Exacerbation, Progression, or Severe Exacerbation? @ -No Poses a threat to life or bodily function? How? (Chest pain, USA, NH, pneumonia, PE, COPD, DKA, ARF, appy, cholecystitis, CVA, Diverticulitis, Homicidal, Suicidal, threat to staff... and all critical care pts) @ -No - Lab Data Result diagrams: 02/13/25 22:05 02/13/25 22:05 Lab Results 02/13/25 02/13/25 02/14/25 Range/Units 22:05 22:05 00:21 WBC 7.37 (4.50-10.00) 10*3/uL RBC 4.91 (4.10-5.20) 10*6/uL Hgb 12.2 (12.0-15.0) g/dL Hct 37.2 (37.2-46.3) % MCV 75.8 L (80.0-97.0) fL MCH 24.8 L (27.0-32.0) pg MCHC 32.8 (32.0-37.0) g/dL Plt Count 269 (140-440) 10*3/uL MPV 10.8 (9.5-12.2) fL Immature Gran % (Auto) 0.3 % Neutrophils % 70.6 % Lymphocytes % 21.4 % Monocytes % 6.9 % Eosinophils % 0.5 % Basophils % 0.3 % Immature Gran # 0.02 (0.00-0.04) 10*3/uL Neutrophils # 5.20 (1.80-7.70) 10*3/uL Lymphocytes # 1.58 (0.90-5.00) 10*3/uL Monocytes # 0.51 (0.20-1.00) 10*3/uL Eosinophils # 0.04 (0.04-0.35) 10*3/uL Basophils # 0.02 (0.00-0.10) 10*3/uL Sodium 134 L (137-145) mmol/L Potassium 3.7 (3.5-5.1) mmol/L Chloride 100 (98-107) mmol/L Carbon Dioxide 21 L (22-30) mmol/L Anion Gap 13 mmol/L BUN 8 (7-17) mg/dL Creatinine 0.35 L (0.52-1.04) mg/dL Est GFR (CKD-EPI)AfAm >90 (>60 ml/min/1.73 sqM) Est GFR (CKD-EPI)NonAf >90 (>60 ml/min/1.73 sqM) Glucose 330 H (74-99) mg/dL POC Glucose (mg/dL) 163 H (70-110) mg/dL POC Glu Pantry Steward/Stewardess ID Melissa Monzon Calcium 9.8 (8.4-10.2) mg/dL HCG, Quant <2.4 mIU/mL Disposition Clinical Impression: Dizziness Disposition: HOME SELF-CARE Condition: Good Instructions (If sedation given, give patient instructions): Dizziness (ED) Is patient prescribed a controlled substance at d/c from ED?: No Referrals: None,Stated [Primary Care Provider] - 1-2 days Time of Disposition: 00:36
[2025-02-13 22:12] LABS: Basophils # (A) 0.02 10*3/uL (0.00-0.10); Basophils % (A) 0.3 %; Eosinophils # (A) 0.04 10*3/uL (0.04-0.35); Eosinophils % (A) 0.5 %; HCT 37.2 % (37.2-46.3); HGB 12.2 g/dL (12.0-15.0); Lymphocytes # (A) 1.58 10*3/uL (0.90-5.00); Lymphocytes % (A) 21.4 %; MCH 24.8 pg (27.0-32.0); MCHC 32.8 g/dL (32.0-37.0); MCV 75.8 fL (80.0-97.0); Mean Platelet Volume 10.8 fL (9.5-12.2); Monocytes # (A) 0.51 10*3/uL (0.20-1.00); Monocytes % (A) 6.9 %; Neutrophils % (A) 70.6 %; Platelet Count 269 10*3/uL (140-440); RBC 4.91 10*6/uL (4.10-5.20); RDW 14.6 % (11.5-14.5); WBC 7.37 10*3/uL (4.50-10.00)
[2025-02-13 22:22] LABS: African American GFR (CKD) >90 (>60 ml/min/1.73 sqM); Anion Gap 13 mmol/L; Blood Urea Nitrogen 8 mg/dL (7-17); Calcium 9.8 mg/dL (8.4-10.2); Carbon Dioxide 21 mmol/L (22-30); Chloride 100 mmol/L (98-107); Glucose 330 mg/dL (74-99); Non-African American GFR(CKD) >90 (>60 ml/min/1.73 sqM); Potassium 3.7 mmol/L (3.5-5.1); Sodium 134 mmol/L (137-145)
[2025-02-13 22:38] LABS: HCG,Quantitative Serum <2.4 mIU/mL
[2025-02-13] MEDS: INSULIN REGULAR 100 UNIT/ML VIAL (IV) IV ONE (23:41)
[2025-02-13 23:46] VITALS: RESP 18
[2025-02-14] MEDS: ONDANSETRON 4 MG/2 ML VIAL IVP STA (00:17)
[2025-02-14 00:22] LABS: Glucose,Whole Blood 163 mg/dL (70-110)
[2025-02-14 00:54] VITALS: BP 131/80; PULSE 102
== END 2025-02-14 00:56 | disposition home or self-care (01) ==
LOC: EC 21:06
DX: R55 Syncope and collapse (principal); F17.290 Nicotine dependence, other tobacco product, uncomplicated
CPT/HCPCS: 36415; 80048; 84702; 85025; 93005; 96374; 99284